=== PATIENT | male | born 1985 | race African-American/Black ===

== ENCOUNTER 2016-06-17 19:41 | Inpatient (IN) | payer BC ==
[~2016-06-17] VITALS: Ht 165.1 cm; Wt 85.7 kg
[2016-06-17] MEDS ORDERED: NKM (19:43)
--- NOTE | 2016-06-17 20:00 | Emergency Room Report ---
History of Present Illness General Chief Complaint: Chest Pain Source: Patient, EMS Present Illness HPI Patient is a 31-year-old male who presented after having increased chest pain for the past 3 days. Patient states he's had intermittent episodes of chest pain the past which did not radiate. The pain was noted in the right lower chest. The pain was worse with deep breath. Patient denied any recent leg pain or swelling. Denied recent travel. He had vomited 5 times the last few days. Allergies: Coded Allergies: SHELLFISH DERIVED (Verified Allergy, Unknown, 06/17/16) Shrimp (Verified Allergy, Unknown, 06/17/16) Patient History Reviewed Nursing Documentation: PMH: Agreed, PSxH: Agreed Nursing Documentation-PMH Past Medical History: No Stated History Review of Systems All Other Systems: negative except mentioned in HPI Physical Exam Vital Signs Date Time Temp Pulse Resp B/P Pulse Ox O2 Delivery O2 Flow Rate FiO2 06/17/16 19:39 98.1 80 36 145/103 99 Room Air Sp02 EP Interpretation: normal General Appearance: alert, GCS 15, non-toxic, mild distress Head: normocephalic ENT: normal ENT inspection, hearing grossly normal, normal voice Neck: normal inspection, full range of motion, supple, no bony tend Respiratory: normal inspection, lungs clear, normal breath sounds, no respiratory distress, no retraction, no wheezing Cardiovascular #1: regular rate, rhythm, no edema Gastrointestinal: normal inspection, normal bowel sounds, non tender, soft, no guarding, no hernia Genitourinary: no CVA tenderness Musculoskeletal: normal inspection, back normal, normal range of motion Neurologic: normal inspection, alert, responsive, speech normal Psychiatric: normal inspection, judgement/insight normal, mood/affect normal Skin: normal inspection, normal color, no rash Medical Decision Making Diagnostic Impression: Primary Impression: Biliary obstruction Additional Impression: Cholelithiasis ER Course Patient presented for abdominal pain. Differential diagnoses included ischemic bowel, appendicitis, perforated viscus, abdominal aortic aneurysm, inferior myocardial infarction, viral gastroenteritis Because of complexity of patient's case laboratory testing and imaging studies were ordered. Laboratory testing was notable for elevated alkaline phosphatase as well as liver function tests. The patient started on IV antibiotics empirically. He was given IV morphine for pain as well as Zofran.CT abdomen pelvis read by radiology showed dilated gallbladder with intrahepatic duct dilation suggestive of biliary obstruction. Abdominal ultrasound was ordered which showed a common bile duct of 9.5 cm. Patient was discussed with Dr. Hector Young. The patient was also discussed with Dr. Montez for GI consult Laboratory Tests Test 06/17/16 19:50 06/17/16 20:10 White Blood Count 10.0 K/UL (4.8-10.8) Red Blood Count 5.13 M/UL (4.70-6.10) Hemoglobin 15.3 G/DL (14.2-18.0) Hematocrit 44.7 % (42.0-52.0) Mean Corpuscular Volume 87 FL (80-99) Mean Corpuscular Hemoglobin 29.7 PG (27.0-31.0) Mean Corpuscular Hemoglobin Concent 34.1 G/DL (32.0-36.0) Red Cell Distribution Width 11.6 % (11.6-14.8) Platelet Count 288 K/UL (150-450) Mean Platelet Volume 9.6 FL (6.5-10.1) Neutrophils (%) (Auto) 48.6 % (45.0-75.0) Lymphocytes (%) (Auto) 40.0 % (20.0-45.0) Monocytes (%) (Auto) 8.3 % (1.0-10.0) Eosinophils (%) (Auto) 1.6 % (0.0-3.0) Basophils (%) (Auto) 1.5 % (0.0-2.0) Sodium Level 135 mEQ/L (135-145) Potassium Level 3.1 mEQ/L (3.4-4.9) L Chloride Level 93 mEQ/L (98-107) L Carbon Dioxide Level 20 mEQ/L (20-30) Anion Gap 22 (5-15) H Blood Urea Nitrogen 8 mg/dL (7-23) Creatinine 0.9 mg/dL (0.7-1.2) Estimate Glomerular Filtration Rate > 60 mL/min (>60) Glucose Level 137 mg/dL (74-106) H Calcium Level 9.2 mg/dL (8.6-10.2) Total Bilirubin 3.6 mg/dL (0.0-1.2) H Direct Bilirubin 2.0 mg/dL (0.1-0.3) H Aspartate Amino Transferase (AST) 382 U/L (5-40) H Alanine Aminotransferase (ALT) 600 U/L (3-41) H Alkaline Phosphatase 530 U/L (40-129) H Total Creatine Kinase 73 U/L (38-174) Creatine Kinase MB < 1.5 ng/mL (< 6.7) Creatine Kinase MB Relative Index Troponin I < 0.30 ng/mL (<=0.30) Total Protein 7.6 g/dL (6.6-8.7) Albumin 4.4 g/dL (3.5-5.2) Globulin 3.2 g/dL Albumin/Globulin Ratio 1.3 (1.0-2.7) Lipase 24 U/L (< 60) Urine Opiates Screen Negative (NEGATIVE) Urine Barbiturates Screen Negative (NEGATIVE) Phencyclidine (PCP) Screen Negative (NEGATIVE) Urine Amphetamines Screen Negative (NEGATIVE) Urine Benzodiazepines Screen Negative (NEGATIVE) Urine Cocaine Screen Negative (NEGATIVE) Urine Marijuana (THC) Screen Negative (NEGATIVE) EKG Diagnostic Results Rate: normal - 76 Rhythm: NSR ST Segments: no acute changes Last Vital Signs Date Time Temp Pulse Resp B/P Pulse Ox O2 Delivery O2 Flow Rate FiO2 06/17/16 19:39 98.1 80 36 145/103 99 Room Air Status: unchanged Disposition: ADMITTED INPATIENT Condition: Vikas FrankoPrashant Jun 17, 2016 20:00
[2016-06-17 20:10] LABS: BASOPHILS % (AUTO) 1.5 % (0.0-2.0); EOSINOPHILS % (AUTO) 1.6 % (0.0-3.0); MEAN CORPUSCULAR HEMOGLOBIN 29.7 PG (27.0-31.0); MEAN CORPUSCULAR HGB CONC 34.1 G/DL (32.0-36.0); MEAN CORPUSCULAR VOLUME 87 FL (80-99); MEAN PLATELET VOLUME 9.6 FL (6.5-10.1); MONOCYTES % (AUTO) 8.3 % (1.0-10.0); NEUTROPHILS % (AUTO) 48.6 % (45.0-75.0); PLATELET COUNT 288 K/UL (150-450); RED BLOOD COUNT 5.13 M/UL (4.70-6.10); RED CELL DISTRIBUTION WIDTH 11.6 % (11.6-14.8)
[2016-06-17] MEDS ORDERED: Morphine Sulfate 4mg/ml Inj IVP ONE ×2 (20:15→21:15)
[2016-06-17 20:21] VITALS: BP 116/68
[2016-06-17 20:25] LABS: TROPONIN I < 0.30 ng/mL (<=0.30)
[2016-06-17 20:28] LABS: ALANINE AMINOTRANSFERASE 600 U/L (3-41); ALBUMIN/GLOBULIN RATIO 1.3 (1.0-2.7); ANION GAP 22 (5-15); ASPARTATE AMINO TRANSFERASE 382 U/L (5-40); CALCIUM 9.2 mg/dL (8.6-10.2); CARBON DIOXIDE 20 mEQ/L (20-30); CHLORIDE 93 mEQ/L (98-107); CREATININE 0.9 mg/dL (0.7-1.2); GLOMERULAR FILTRATION RATE > 60 mL/min (>60); HEMOLYSIS 6; LIPASE 24 U/L (< 60); POTASSIUM 3.1 mEQ/L (3.4-4.9); SODIUM 135 mEQ/L (135-145); TOTAL PROTEIN 7.6 g/dL (6.6-8.7)
[2016-06-17 20:38] LABS: CKMB < 1.5 ng/mL (< 6.7)
[2016-06-17 21:18] VITALS: BP 122/65
[2016-06-17] MEDS ORDERED: Ampicillin/Sulbactam Sod 3 GM in NS 110 ML IVPB ONE (21:30)
[2016-06-17] MEDS ORDERED: Unasyn 3gm Inj ONE (22:26)
[2016-06-17] MEDS ORDERED: Morphine Sulfate 2mg/ml Inj IVP PRN (22:30)
[2016-06-17] MEDS ORDERED: Milk of Magnesia 30ml Ud ORAL PRN (22:30)
[2016-06-17] MEDS ORDERED: Zolpidem 5mg tab ORAL PRN (22:30)
[2016-06-17] MEDS ORDERED: Morphine Sulfate 4mg/ml Inj IVP PRN (22:30)
[2016-06-17 22:40] VITALS: BP 105/41
[2016-06-17] MEDS: D5 1/2NS 1,000 ML IV SCH (23:55)
[2016-06-18 00:46] VITALS: BP 108/43
[2016-06-18 04:00] VITALS: BP 102/47
[2016-06-18] MEDS ORDERED: Zosyn 3.375gm inj ONE (05:41)
[2016-06-18] MEDS: Piperacillin/Tazobactam 3.375 GM in D5W 110 ML IVPB SCH ×3 (06:02→22:07)
[2016-06-18] MEDS ORDERED: Morphine Sulfate 10mg/ml Inj IVP PRN (06:29)
[2016-06-18] MEDS ORDERED: Morphine Sulfate 4mg/ml Inj IVP PRN (06:30)
[2016-06-18 07:28] LABS: BASOPHILS % (AUTO) 1.4 % (0.0-2.0); EOSINOPHILS % (AUTO) 1.9 % (0.0-3.0); LYMPHOCYTES % (AUTO) 36.2 % (20.0-45.0); MEAN CORPUSCULAR HEMOGLOBIN 29.9 PG (27.0-31.0); MEAN CORPUSCULAR HGB CONC 33.8 G/DL (32.0-36.0); MEAN CORPUSCULAR VOLUME 89 FL (80-99); MEAN PLATELET VOLUME 9.3 FL (6.5-10.1); NEUTROPHILS % (AUTO) 51.5 % (45.0-75.0); PLATELET COUNT 268 K/UL (150-450); RED BLOOD COUNT 4.89 M/UL (4.70-6.10); RED CELL DISTRIBUTION WIDTH 11.8 % (11.6-14.8); WHITE BLOOD COUNT 6.3 K/UL (4.8-10.8)
[2016-06-18 07:49] LABS: TROPONIN I < 0.30 ng/mL (<=0.30)
[2016-06-18 07:52] LABS: ALANINE AMINOTRANSFERASE 503 U/L (3-41); ALBUMIN/GLOBULIN RATIO 1.3 (1.0-2.7); ANION GAP 13 (5-15); ASPARTATE AMINO TRANSFERASE 282 U/L (5-40); CALCIUM 8.9 mg/dL (8.6-10.2); CARBON DIOXIDE 26 mEQ/L (20-30); CHLORIDE 99 mEQ/L (98-107); CHOLESTEROL 171 mg/dL (< 200); CHOLESTEROL/HDL RATIO 3.4 (3.3-4.4); CREATININE 0.8 mg/dL (0.7-1.2); GLOMERULAR FILTRATION RATE > 60 mL/min (>60); HEMOLYSIS 7; LDL CHOLESTEROL (CALC.) 108 mg/dL (60-99); MAGNESIUM 2.1 mg/dL (1.7-2.5); POTASSIUM 3.9 mEQ/L (3.4-4.9); SODIUM 138 mEQ/L (135-145); TOTAL PROTEIN 6.9 g/dL (6.6-8.7)
[2016-06-18 08:00] VITALS: BP 146/70
[2016-06-18 08:02] LABS: HEMOGLOBIN A1C 4.9 % (< 6.0)
[2016-06-18 08:09] LABS: BILIRUBIN,DIRECT 1.4 mg/dL (0.1-0.3)
[2016-06-18] MEDS: Pantoprazole Inj IV SCH (08:30)
--- NOTE | 2016-06-18 09:24 | Diagnostic Imaging Report ---
Clinical history: Chest pain Technique: Portable AP chest radiograph was obtained. Comparison: None Findings: Lung volumes are low. No focal consolidation identified. There is no pneumonia or pulmonary edema. There is no pleural effusion or pneumothorax. The cardiac and mediastinal silhouettes are normal in appearance. The bony thorax is unremarkable. Impression: No acute cardiopulmonary process.
[2016-06-18] MEDS: D5 1/2NS 1,000 ML IV SCH ×2 (09:27→19:27)
--- NOTE | 2016-06-18 09:37 | Diagnostic Imaging Report ---
\H\CT Abdomen/Pelvis with Intravenous Contrast Date of service: 06/17/16. Indication: Acute abdominal pain. Comparison: None available. Technique: Utilizing a multislice CT scanner, a CT of the abdomen and pelvis was performed after administration of intravenous contrast. All CT scans at this facility use dose modulation, iterative reconstruction, and/or weight based dosing when appropriate to reduce radiation dose to as low as reasonably achievable. CTDIvol (mGy): 17 DLP (mGy-cm): 956 Findings: The visualized lung bases exhibit mild nonspecific linear and nodular opacities in the dependent lungs abutting the pleura suggesting atelectasis or scarring. The liver is unremarkable. The gallbladder is moderately distended with cholelithiasis. Mild increased stranding of the right upper abdomen mesentery is identified. Consider clinical correlation for acute cholecystitis. There is moderate intrahepatic and extrahepatic biliary ductal dilatation. The pancreatic duct appears prominent. Clinical correlation for bile duct obstruction and further evaluation with MRCP and/or ERCP is recommended. The spleen and adrenal glands are unremarkable. There is a 25 x 12 mm probable cyst in the lower left kidney. No calculus is identified within either kidney, along the expected course of the ureters or within the urinary bladder. There is no evidence of hydronephrosis or asymmetric perirenal inflammatory change. The urinary bladder is grossly unremarkable. The pelvic organs are grossly unremarkable. The visualized bowel are grossly unremarkable. There is no evidence of obstruction. There is no extraluminal gas or fluid. Nonspecific mild right lower quadrant lymphadenopathy is noted. There is no significant calcified atherosclerotic disease of the the abdominal aorta. The osseous structures are unremarkable. \N\\H\Impression: 1. Moderately distended gallbladder with cholelithiasis and increased stranding of the right upper abdomen mesentery. Consider clinical correlation for acute cholecystitis. HIDA scan may be considered, as clinically warranted. 2. Moderate intrahepatic and extrahepatic biliary ductal dilatation with a prominent pancreatic duct. Clinical correlation for bile duct obstruction and further evaluation with MRCP and/or ERCP is recommended. 3. Probable 25 mm left renal cyst. 4. Mild nonspecific right lower quadrant lymphadenopathy. \N\
--- NOTE | 2016-06-18 09:51 | Diagnostic Imaging Report ---
Study: Ultrasound Abdomen Indication: Acute abdominal pain. Comparison: Subsequently performed abdomen/pelvis CT dated 06/17/16. TECHNIQUE: Grayscale and color Doppler images of the abdominal organs were obtained using a curved transducer. FINDINGS: The pancreas is not optimally visualized due to overlying bowel gas. The liver measures 15.8 cm along the mid clavicular line and is normal in contour and echogenicity. The portal vein demonstrates hepatopetal flow. There is mild intrahepatic biliary dilation. The common duct measures 9.5 mm. The gallbladder is moderately distended with small echogenic foci suggesting cholelithiasis. The sonographic Luna's sign is reported negative. The spleen is normal in size, measuring 10.6 cm. The right kidney measures 11.9 x 5.1 x 4.5 cm and the left kidney measures 11.3 x 4.9 x 6.1 cm. Both kidneys demonstrate normal cortical thickness and echogenicity. There is no hydronephrosis. Probable 2.5 cm left renal cyst noted. There is no ascites. The proximal aorta and IVC are not optimally visualized. IMPRESSION: 1. Moderately distended gallbladder with cholelithiasis. Sonographic Luna's sign is reported negative. Clinical correlation for acute cholecystitis is recommended. HIDA scan may be considered. 2. Mild intrahepatic biliary ductal dilatation. Please refer to the abdomen/pelvis CT report from the same day for further details. 3. Probable 2.5 cm left renal cyst.
[2016-06-18] MEDS ORDERED: D5 1/2NS 1000ml IV ONE (10:38)
[2016-06-18] MEDS ORDERED: Tubing IV Secondary IV ONE ×2 (10:38→10:40)
[2016-06-18] MEDS ORDERED: D5NS 1000ml IV ONE (10:40)
[2016-06-18] MEDS ORDERED: D5W 275ml ONE (10:40)
[2016-06-18] MEDS ORDERED: 1/2 NS 1000ml IV ONE (10:40)
--- NOTE | 2016-06-18 12:20 | History & Physical ---
History and Physical History & Physicial HP dictated # [id number] KEVIN PUENTE Jun 18, 2016 12:20
[2016-06-18 12:30] VITALS: BP 109/63
[2016-06-18 16:24] VITALS: BP 116/56
--- NOTE | 2016-06-18 17:49 | History and Physical Report ---
DATE OF ADMISSION: 06/17/2016 CHIEF COMPLAINT: Right-sided lower chest pain as well as vomiting and anorexia. HISTORY OF PRESENT ILLNESS: This is a 31-year-old male who has had some pain on the right lower part of the chest, which started about two years ago. The patient has had it on and off and he did not seek medical attention. However, three days prior to admission, he started having severe pain in that area and he had some vomiting. In the past couple of days, his symptoms were waxing and waning. He did not eat anything on Sunday and he felt better. Then, he had a cheeseburger and he started getting pain and vomiting again, but finally on Sunday he came to the emergency room with worsening of his pain. In the emergency room, the patient had an ultrasound of the abdomen and that showed moderately distended gallbladder with cholelithiasis and mild intrahepatic biliary ductal dilatation. The patient had also CT scan again showing moderately distended gallbladder with cholelithiasis and moderate intrahepatic and extrahepatic biliary ductal dilation. The patient was admitted with diagnosis of acute cholecystitis with possible common bile duct stone since he has had also elevation of bilirubin and AST and ALT. Bilirubin was 3.5, AST was 282, and ALT was 463. Overnight, the patient was kept NPO with IV fluids as well as intravenous antibiotics, and is feeling better now. PAST MEDICAL HISTORY: Basically benign, the patient denies any history of diabetes mellitus or hypertension. He has not been in the hospital before. No history of lung disease or kidney problems. MEDICATIONS: None. ALLERGIES: Shellfish and shrimp. No known drug allergies. REVIEW OF SYSTEMS: As above. PHYSICAL EXAMINATION: GENERAL: The patient is a 31-year-old male, in no acute distress. VITAL SIGNS: Blood pressure ___/70, pulse 93, temperature 97, and respiratory rate 15. HEENT: Burna conjunctivae. Anicteric sclerae. NECK: Supple. LUNGS: Clear to auscultation. HEART: S1 and S2 without murmurs or rubs. ABDOMEN: Soft and nontender. EXTREMITIES: No cyanosis or edema. LABORATORY FINDINGS: CBC shows a WBC of 6.3, which is down from 10,000, hematocrit 43.3, hemoglobin 14.6, and platelets 268,000. Chemistry panel shows serum sodium 138, potassium 3.9, chloride 99, CO2 26, BUN 4, and creatinine 0.8. Albumin is 4. ASSESSMENT: This is a 31-year-old male, who was admitted with diagnosis of acute cholecystitis as a result of cholelithiasis with possibility of common bile duct stone and biliary obstruction. PLAN: The patient will be maintained on IV fluids. I will keep the patient NPO. The patient is already on as-needed morphine for pain management. Gastrointestinal consultation was called. The patient will likely need to have the ERCP and possibly cholecystectomy. These were discussed with the patient in detail, and all questions were answered. Hector Young M.D. DR: SHAYY JOB#: [id number] CC:
[2016-06-18 20:52] VITALS: BP 114/71
--- NOTE | 2016-06-18 22:09 | Consultation ---
DATE OF CONSULTATION: 06/18/2016 GASTROENTEROLOGY CONSULTATION CHIEF COMPLAINT: Nausea, vomiting, and abdominal pain. HISTORY OF PRESENT ILLNESS: The patient is 31-year-old male with a past medical history of gallstones, admitted to the hospital with complaint of one-day of severe abdominal pain. In the ER, he had a CT, ultrasound, and laboratories, all consistent with positivity of acute cholecystitis versus choledocholithiasis. Of note, the patient is feeling much better today and he has no pain today. PAST MEDICAL HISTORY: Gallbladder disease and gallstones. PAST SURGICAL HISTORY: None. MEDICATIONS: Please see medication reconciliation list. ALLERGIES: Shellfish and shrimp. SOCIAL HISTORY: He is . No history of tobacco, alcohol, or drug abuse. FAMILY HISTORY: Noncontributory. REVIEW OF SYSTEMS: A 10-point review of systems was performed and pertinent positives in history of present illness. PHYSICAL EXAMINATION: VITAL SIGNS: Temperature 98.4 degrees, pulse is 69, respirations 19, and blood pressure is 116/56. HEENT: Normocephalic and atraumatic. Sclerae anicteric. NECK: Supple. No evidence of lymphadenopathy. CARDIOVASCULAR: Regular rhythm. Plus S1 and S2. No obvious murmur. LUNGS: Clear breath sounds bilaterally. ABDOMEN: Positive bowel sounds. Soft and nontender. No rebound. No guarding. No peritoneal sign. EXTREMITIES: No cyanosis. No clubbing. No edema. LABORATORY DATA: Bilirubin 3.5 and direct bilirubin is 1.4. AST of 282, ALT of 503, and alkaline phosphatase of 463. ASSESSMENT: This is a 31-year-old male with abnormal liver function tests and possible acute cholecystitis versus choledocholithiasis. PLAN: Given the abdominal pain is almost gone, we will order an MRCP. The patient possibly passed the stone. If the MRCP shows evidence of CBD stone, we will schedule endoscopic retrograde cholangiopancreatography. If the MRCP shows no CBD stone, the liver enzymes are improved, and the patient has no pain, we will recommend surgical evaluation for cholecystectomy. Shade Koo M.D. DR: VAHID JOB#: [id number] CC:
[2016-06-18 23:07] LABS: TROPONIN I < 0.30 ng/mL (<=0.30)
[2016-06-19 04:00] VITALS: BP 108/67
[2016-06-19] MEDS: Piperacillin/Tazobactam 3.375 GM in D5W 110 ML IVPB SCH ×3 (05:26→21:51)
[2016-06-19] MEDS: D5 1/2NS 1,000 ML IV SCH ×2 (05:26→17:46)
[2016-06-19 06:55] LABS: TROPONIN I < 0.30 ng/mL (<=0.30)
[2016-06-19 06:59] LABS: ALANINE AMINOTRANSFERASE 394 U/L (3-41); ALBUMIN/GLOBULIN RATIO 1.3 (1.0-2.7); ANION GAP 13 (5-15); ASPARTATE AMINO TRANSFERASE 150 U/L (5-40); CALCIUM 9.2 mg/dL (8.6-10.2); CARBON DIOXIDE 26 mEQ/L (20-30); CHLORIDE 100 mEQ/L (98-107); CREATININE 0.9 mg/dL (0.7-1.2); GLOMERULAR FILTRATION RATE > 60 mL/min (>60); HEMOLYSIS 0; POTASSIUM 4.2 mEQ/L (3.4-4.9); SODIUM 139 mEQ/L (135-145); TOTAL PROTEIN 6.6 g/dL (6.6-8.7)
[2016-06-19 07:20] LABS: BILIRUBIN,DIRECT 0.8 mg/dL (0.1-0.3)
[2016-06-19 08:00] VITALS: BP 111/69
[2016-06-19] MEDS: Pantoprazole Inj IV SCH ×3 (09:00→09:46)
--- NOTE | 2016-06-19 09:36 | General Progress Note ---
Assessment/Plan Assessment/Plan Assessment - Abnormal LFT - improved - cholelithiasis - suspect patient passed a stone Recommendations - Await MRCP - If (+) CBD stone --> ERCP - If (-) CBD stone --> clears and advance - Needs eventual lap dulce Subjective Allergies: Coded Allergies: SHELLFISH DERIVED (Verified Allergy, Unknown, 06/17/16) Shrimp (Verified Allergy, Unknown, 06/17/16) Subjective feels OK NPO no abd pain LFT better Objective Last 24 Hour Vital Signs Date Time Temp Pulse Resp B/P Pulse Ox O2 Delivery O2 Flow Rate FiO2 06/19/16 08:00 97.5 68 19 111/69 98 Room Air 06/19/16 04:00 97.9 70 20 108/67 99 Room Air 06/18/16 20:52 97.7 63 18 114/71 97 Room Air 06/18/16 16:24 98.4 69 19 116/56 99 Room Air 06/18/16 12:30 98.1 78 16 109/63 98 Room Air Intake and Output 06/18/16 06/19/16 19:00 07:00 Intake Total 300 ml 1330.0 ml Output Total 750 ml Balance 300 ml 580.0 ml Intake Oral 120 ml IV Total 300 ml 1210.0 ml Output Urine Total 750 ml # Voids 2 Laboratory Tests 06/18/16 22:40: Troponin I < 0.30 06/19/16 05:10: Troponin I < 0.30, Sodium Level 139, Potassium Level 4.2, Chloride Level 100, Carbon Dioxide Level 26, Anion Gap 13, Blood Urea Nitrogen 5L, Creatinine 0.9, Estimat Glomerular Filtration Rate > 60, Glucose Level 109H, Calcium Level 9.2, Total Bilirubin 2.7H, Direct Bilirubin 0.8H, Aspartate Amino Transf (AST/SGOT) 150H, Alanine Aminotransferase (ALT/SGPT) 394H, Alkaline Phosphatase 429H, Total Protein 6.6, Albumin 3.8, Globulin 2.8, Albumin/Globulin Ratio 1.3 Height (Feet): 5 Height (Inches): 8.00 Weight (Pounds): 189 Objective WDWN NCAT supple CTA RRR Abd soft ND NT no edema non focal SEBASTIEN MCKEON Jun 19, 2016 09:36
--- NOTE | 2016-06-19 10:54 | Cardiology Report ---
APPROVED REPORT EKG Measurement Heart [id number] Normal sinus rhythm Normal ECG
[2016-06-19 12:00] VITALS: BP 103/64
--- NOTE | 2016-06-19 13:25 | General Progress Note ---
Assessment/Plan Problem List: (1) Biliary obstruction ICD Codes: K83.1 - Obstruction of bile duct SNOMED: 116685869 (2) Cholelithiasis ICD Codes: K80.20 - Calculus of gallbladder without cholecystitis without obstruction SNOMED: 136276234 (3) Cholecystitis ICD Codes: K81.9 - Cholecystitis, unspecified SNOMED: 90752715, 14886516 (4) Chest pain ICD Codes: R07.9 - Chest pain, unspecified SNOMED: 56883955 Assessment/Plan Abxs IVF await MRCP surgical consult Discussed with pt, and father inlaw Subjective Allergies: Coded Allergies: SHELLFISH DERIVED (Verified Allergy, Unknown, 06/17/16) Shrimp (Verified Allergy, Unknown, 06/17/16) Subjective feels better Objective Last 24 Hour Vital Signs Date Time Temp Pulse Resp B/P Pulse Ox O2 Delivery O2 Flow Rate FiO2 06/19/16 08:00 97.5 68 19 111/69 98 Room Air 06/19/16 04:00 97.9 70 20 108/67 99 Room Air 06/18/16 20:52 97.7 63 18 114/71 97 Room Air 06/18/16 16:24 98.4 69 19 116/56 99 Room Air Intake and Output 06/18/16 06/19/16 19:00 07:00 Intake Total 300 ml 1330.0 ml Output Total 750 ml Balance 300 ml 580.0 ml Intake Oral 120 ml IV Total 300 ml 1210.0 ml Output Urine Total 750 ml # Voids 2 Laboratory Tests 06/18/16 22:40: Troponin I < 0.30 06/19/16 05:10: Troponin I < 0.30, Sodium Level 139, Potassium Level 4.2, Chloride Level 100, Carbon Dioxide Level 26, Anion Gap 13, Blood Urea Nitrogen 5L, Creatinine 0.9, Estimat Glomerular Filtration Rate > 60, Glucose Level 109H, Calcium Level 9.2, Total Bilirubin 2.7H, Direct Bilirubin 0.8H, Aspartate Amino Transf (AST/SGOT) 150H, Alanine Aminotransferase (ALT/SGPT) 394H, Alkaline Phosphatase 429H, Total Protein 6.6, Albumin 3.8, Globulin 2.8, Albumin/Globulin Ratio 1.3 Height (Feet): 5 Height (Inches): 8.00 Weight (Pounds): 189 Cardiovascular: normal rate Respiratory/Chest: lungs clear Abdomen: soft KEVIN PUENTE Jun 19, 2016 13:25
--- NOTE | 2016-06-19 13:36 | Diagnostic Imaging Report ---
Indication: Biliary ductal dilatation. Abdominal pain Technique: MRI of the abdomen was performed in a 1.5 Ruth magnet. Pulse sequences obtained include coronal and axial T2 single shot fast spin echo breathhold and respiratory gated coronal T2 3-D M.R.C.P.; this data set was displayed in different projections or MIPs. In addition, multiple coronal oblique thin T2 weighted, fat saturated SE sequences obtained through the CBD. Comparison: CT 06/17/16 Findings: The biliary ducts are prominent particularly within the liver. The CBD is relatively normal in size. There is a probable filling defect in the midportion of the CBD best demonstrated on the MRCP portion of the examination (for example series 8, image 3). Gallbladder is distended. No obvious gallstone seen at this time. There is a suggestion of pericholecystic inflammation. The main pancreatic duct is unremarkable. There is a 2.2 cm left renal cyst. There is no ascites. No adrenal mass identified. Impression: Suspected, small, nonobstructive stones in the midportion of the CBD. No impacted stone demonstrated in the distal part of the CBD or ampulla of Madhuri. Mild biliary ductal dilatation is present. 2.2 x 1.5 CM left renal cyst
[2016-06-19] MEDS ORDERED: D5 1/2NS 1000ml IV ONE (14:58)
[2016-06-19] MEDS ORDERED: NS 275ml ONE (14:58)
[2016-06-19 16:06] VITALS: BP 108/86
--- NOTE | 2016-06-19 18:26 | General Progress Note ---
Progress Note Progress Note Chart reviewed, pt examined, consult dictated. Impression: choleduocholithiasis Plan: concur with ERCP, he will need a cholecystectomy pending results of ERCP. Fernando Blanchard MD Jun 19, 2016 18:26
[2016-06-19 20:00] VITALS: BP 110/73
[2016-06-20] VITALS (10 sets, daily range): BP systolic 105–127; BP diastolic 64–78
[2016-06-20] MEDS: D5 1/2NS 1,000 ML IV SCH ×2 (01:27→10:13)
--- NOTE | 2016-06-20 04:48 | Consultation ---
DATE OF CONSULTATION: 06/19/2016 SURGICAL CONSULTATION CONSULTING PHYSICIAN: Fernando Blanchard M.D. REASON FOR CONSULTATION: Gallstones, choledocholithiasis. HISTORY OF PRESENT ILLNESS: This 31-year-old male presented to the hospital two days ago with severe right lower chest pain. The pain was accompanied by nausea and vomiting. On closer questioning, he has had a similar though less severe episodes of this pain for the past year and a half. The patient had pain approximately five days ago. The pain abated. He did not eat anything 3 days ago. He felt better. He ate a cheeseburger 2 days ago, which precipitated the lower chest pain. He denied any symptoms of fever or chills. He denied any symptoms of diarrhea or dysuria. PAST MEDICAL HISTORY: Previous surgeries, none. ALLERGIES: To shellfish. MEDICATIONS: None. SOCIAL HISTORY: Tobacco, none. Alcohol, the patient is a social drinker. He drinks mostly beer and wine. FAMILY HISTORY: Positive for diabetes in a maternal uncle. The patient's father was treated for prostate carcinoma. REVIEW OF SYSTEMS: Essentially negative. There is no history of angina or asthma. He denies any history of hepatitis or renal stones. PHYSICAL EXAMINATION: GENERAL: Reveals a slender black male, in no acute distress. VITAL SIGNS: Temperature 98.2, blood pressure 108/86, pulse 69, and respirations 18. HEENT: Normocephalic. Pupils are equal and reactive to light. There was no scleral icterus. NECK: Supple without adenopathy. LUNGS: Clear. HEART: Showed a regular rhythm without murmurs or gallops. ABDOMEN: Flat and soft. There is mild discomfort in the epigastric region and right upper quadrant. Luna sign is negative. There were no inguinal hernias. EXTREMITIES: Showed no clubbing, cyanosis, or edema. Peripheral pulses were intact. LABORATORY AND DIAGNOSTIC STUDIES: CBC yesterday showed a white blood count of 6300, hemoglobin 14.6 grams percent, hematocrit 43.3%, and platelet count 268,000. Clinical chemistry today shows sodium of 139, potassium 4.2, chloride 100, bicarbonate 26, BUN 5, creatinine 0.9, glucose 109, and calcium 9.2. Total bilirubin today was 2.7 with a direct of 0.8. SGOT was 394, SGPT 150, and alkaline phosphatase elevated to 429. These are improved from yesterday's readings of total bilirubin of 3.5, direct bilirubin of 1.4. An ultrasound of the abdomen taken yesterday showed a dilated common bile duct of 9.5 mm. The gallbladder was moderately distended with small echogenic foci suggesting cholelithiasis. A CT scan of the abdomen taken on admission showed a moderately distended gallbladder with cholelithiasis. There was mild increased stranding of the right upper abdomen mesentery. The CT mentioned moderate intrahepatic and extrahepatic biliary dilatation suspicious for a bile duct obstruction. An MRCP taken today showed small nonobstructive stones in the mid portion of the common bile duct. There were no impacted stones in the distal bile duct or the ampulla of Vater. IMPRESSION: Choledocholithiasis. PLAN: The patient will undergo an endoscopic retrograde cholangiopancreatography tomorrow with hopeful extraction of the bile duct stones. The patient will need a laparoscopic cholecystectomy the timing of which will be dependent on the endoscopic retrograde cholangiopancreatography findings. Fernando Blanchard M.D. DR: PITA JOB#: [id number] CC:
[2016-06-20] MEDS: Piperacillin/Tazobactam 3.375 GM in D5W 110 ML IVPB SCH ×2 (05:58→14:00)
[2016-06-20 07:33] LABS: ALANINE AMINOTRANSFERASE 318 U/L (3-41); ALBUMIN/GLOBULIN RATIO 1.2 (1.0-2.7); ANION GAP 11 (5-15); ASPARTATE AMINO TRANSFERASE 141 U/L (5-40); BASOPHILS % (AUTO) 2.1 % (0.0-2.0); CALCIUM 8.4 mg/dL (8.6-10.2); CARBON DIOXIDE 27 mEQ/L (20-30); CHLORIDE 104 mEQ/L (98-107); EOSINOPHILS % (AUTO) 4.5 % (0.0-3.0); GLOMERULAR FILTRATION RATE > 60 mL/min (>60); HEMOLYSIS 6; LYMPHOCYTES % (AUTO) 50.4 % (20.0-45.0); MEAN CORPUSCULAR HEMOGLOBIN 29.7 PG (27.0-31.0); MEAN CORPUSCULAR HGB CONC 33.1 G/DL (32.0-36.0); MEAN CORPUSCULAR VOLUME 90 FL (80-99); MEAN PLATELET VOLUME 8.6 FL (6.5-10.1); MONOCYTES % (AUTO) 12.4 % (1.0-10.0); NEUTROPHILS % (AUTO) 30.6 % (45.0-75.0); PLATELET COUNT 285 K/UL (150-450); POTASSIUM 4.1 mEQ/L (3.4-4.9); RED BLOOD COUNT 4.75 M/UL (4.70-6.10); RED CELL DISTRIBUTION WIDTH 12.1 % (11.6-14.8); SODIUM 142 mEQ/L (135-145); TOTAL PROTEIN 6.3 g/dL (6.6-8.7); WHITE BLOOD COUNT 5.5 K/UL (4.8-10.8)
[2016-06-20 07:46] LABS: BILIRUBIN,DIRECT 0.5 mg/dL (0.1-0.3)
[2016-06-20] MEDS ORDERED: LR 1000ml ONE (08:00)
[2016-06-20] MEDS ORDERED: Propofol 10mg/ml 20ml IV ONE (08:00)
[2016-06-20] MEDS ORDERED: Midazolam 2mg/2ml Inj ONE (08:00)
[2016-06-20] MEDS ORDERED: fentaNYL 100 mcg/2 mL IV ONE (08:00)
[2016-06-20] MEDS ORDERED: Iothalamate Meglumine 60% 30ML INJ ONE (08:17)
[2016-06-20] MEDS ORDERED: Indomethacin 50mg Supp ONE (08:18)
--- NOTE | 2016-06-20 08:39 | Pre-Procedure Note/Attestation ---
Pre-Procedure Note/Attestation Complete Prior to Procedure Planned Procedure: not applicable Procedure Narrative: ercp Indications for Procedure Pre-Operative Diagnosis: choledocholithiasis Attestation I attest that I discussed the nature of the procedure; its benefits; risks and complications; and alternatives (and the risks and benefits of such alternatives ), prior to the procedure, with the patient (or the patient's legal abrasives sales representative). I attest that, if there was a reasonable possibility of needing a blood transfusion, the patient (or the patient's legal abrasives sales representative) was given the [facility] standardized written summary, pursuant to the Jignesh Harini Blood Safety Act ([place] Health and Safety Code # 1645, as amended). I attest that I re-evaluated the patient just prior to the surgery and that there has been no change in the patient's H&P, except as documented below: LYNDSEY MITCHELL Jun 20, 2016 08:39
--- NOTE | 2016-06-20 08:57 | Anethesia Preoperative Eval ---
Anesthesia Pre-op PMH/ROS General Date of Evaluation: Jun 20, 2016 Time of Evaluation: 08:33 Anesthesiologist: Mahendra ASA Score: ASA 2 Mallampati Score Class I : Soft palate, uvula, fauces, pillars visible Class II: Soft palate, uvula, fauces visible Class III: Soft palate, base of uvula visible Class IV: Only hard plate visible Mallampati Classification: Class II Surgeon: Hayes Diagnosis: Symptomatic cholelithiasis Surgical Procedure: ERCP Anesthesia History: none Family History: no anesthesia problems Allergies: Coded Allergies: SHELLFISH DERIVED (Verified Allergy, Unknown, 06/17/16) Shrimp (Verified Allergy, Unknown, 06/17/16) Past Medical History Cardiovascular: Denies: CAD, HTN, [place], arrhythmia, other, valve dz Pulmonary: Denies: COPD, LISANDRO, asthma, other Gastrointestinal/Genitourinary: Reports: GERD, other - recurrent abdominal pain , Denies: CRI, ESRD Neurologic/Psychiatric: Denies: CVA, TIA, dementia, depression/anxiety, other Endocrine: Denies: DM, hypothyroidism, other, steroids HEENT: Denies: [place] (L), [place] (R), cataract (L), cataract (R), glaucoma, other Hematology/Immune: Denies: DVT, anemia, bleeding disorder, other Musculoskeletal/Integumentary: Denies: DDD, DJD, OA, RA, edema, other Other: other - overweight PMH Narrative: as above admitted with acute abdominal pain nausea and vomiting chest pain r/o cardiac events PSxH Narrative: none Anesthesia Pre-op Phys. Exam Physician Exam Last Vital Signs Date Time Temp Pulse Resp B/P Pulse Ox O2 Delivery O2 Flow Rate FiO2 06/20/16 04:00 97.9 59 18 116/76 99 Room Air Constitutional: NAD Neurologic: CN 2-12 intact Cardiovascular: RRR, no M/R/G Respiratory: other - slightly tender Airway Exam Mallampati Score: Class II MO: full Neck: flexible ROM: full Teeth: intact Dentures: no lower, no upper Anesthesia Pre-op A/P Labs Hematology Test 06/20/16 07:10 White Blood Count 5.5 K/UL (4.8-10.8) Red Blood Count 4.75 M/UL (4.70-6.10) Hemoglobin 14.1 G/DL (14.2-18.0) L Hematocrit 42.6 % (42.0-52.0) Mean Corpuscular Volume 90 FL (80-99) Mean Corpuscular Hemoglobin 29.7 PG (27.0-31.0) Mean Corpuscular Hemoglobin Concent 33.1 G/DL (32.0-36.0) Red Cell Distribution Width 12.1 % (11.6-14.8) Platelet Count 285 K/UL (150-450) Mean Platelet Volume 8.6 FL (6.5-10.1) Neutrophils (%) (Auto) 30.6 % (45.0-75.0) L Lymphocytes (%) (Auto) 50.4 % (20.0-45.0) H Monocytes (%) (Auto) 12.4 % (1.0-10.0) H Eosinophils (%) (Auto) 4.5 % (0.0-3.0) H Basophils (%) (Auto) 2.1 % (0.0-2.0) H Chemistry Test 06/20/16 07:10 Sodium Level 142 mEQ/L (135-145) Potassium Level 4.1 mEQ/L (3.4-4.9) Chloride Level 104 mEQ/L (98-107) Carbon Dioxide Level 27 mEQ/L (20-30) Anion Gap 11 (5-15) Blood Urea Nitrogen 3 mg/dL (7-23) L Creatinine 1.0 mg/dL (0.7-1.2) Estimat Glomerular Filtration Rate > 60 mL/min (>60) Glucose Level 113 mg/dL (74-106) H Calcium Level 8.4 mg/dL (8.6-10.2) L Total Bilirubin 1.7 mg/dL (0.0-1.2) H Direct Bilirubin 0.5 mg/dL (0.1-0.3) H Aspartate Amino Transf (AST/SGOT) 141 U/L (5-40) H Alanine Aminotransferase (ALT/SGPT) 318 U/L (3-41) H Alkaline Phosphatase 337 U/L (40-129) H Total Protein 6.3 g/dL (6.6-8.7) L Albumin 3.5 g/dL (3.5-5.2) Globulin 2.8 g/dL Albumin/Globulin Ratio 1.2 (1.0-2.7) Studies Pre-op Studies: EKG - NSR Risk Assessment & Plan Assessment: ASA 2 Plan: MAC Status Change Before Surgery: No Pre-Antibiotics Drug: as scheduled DIONTE BOATENG M.D. Jun 20, 2016 08:57
[2016-06-20] MEDS: Pantoprazole Inj IV SCH (09:00)
--- NOTE | 2016-06-20 09:27 | Immediate Post-Op Evaluation ---
Immediate Post-Op Evalulation Immediate Post-Op Evalulation Procedure: ERCP Date of Evaluation: Jun 20, 2016 Time of Evaluation: 09:26 IV Fluids: 500 Blood Products: none Estimated Blood Loss: min Urinary Output: none Blood Pressure Systolic: 112 Blood Pressure Diastolic: 58 Pulse Rate: 76 Respiratory Rate: 20 O2 Sat by Pulse Oximetry: 99 Temperature (Fahrenheit): 98.1 Pain Score (1-10): 2 Nausea: No Vomiting: No Complications none Patient Status: awake, patent, none Hydration Status: adequate DIONTE BOATENG M.D. Jun 20, 2016 09:27
--- NOTE | 2016-06-20 09:28 | 48 Hour Post Anesthesia Eval ---
Post Anesthesia Evaluation Procedure: ERCP Date of Evaluation: Jun 20, 2016 Time of Evaluation: 11:02 Blood Pressure Systolic: 108 0: 56 Pulse Rate: 72 Respiratory Rate: 18 Temperature (Fahrenheit): 97.6 O2 Sat by Pulse Oximetry: 98 Airway: patent Nausea: No Vomiting: No Pain Intensity: 1 Hydration Status: adequate Cardiopulmonary Status: stable Mental Status/LOC: patient returned to baseline Follow-up Care/Observations: n/a Post-Anesthesia Complications: none Follow-up care needed: N/A DIONTE BOATENG M.D. Jun 20, 2016 09:28
--- NOTE | 2016-06-20 09:32 | Endoscopy Procedure Note ---
Endoscopy Procedure Note Indication for Procedure: choledocholithiasis Procedures Performed: ERCP Operative Findings/Diagnosis: same Specimen: yes Pt Tolerated Procedure Well: Yes Estimated Blood Loss: none Anesthesiologist: delicia Anesthesia: MAC Implant(s) used?: No 50 yrs or older w/o bx or poly: Not Applicable 10yrs. F/U not recommended: Not Applicable LYNDSEY MITCHELL Jun 20, 2016 09:32
--- NOTE | 2016-06-20 11:11 | General Progress Note ---
Progress Note Progress Note Afebrile. Pt underwent successful ERCP this AM by Dr Koo with removal of a common duct stone. He was advised to proceed with a laparoscopic cholecystectomy tomorrow. He declines due to issues with work. He will see us back in the office to make arrangements for surgery, I have instructed him to adhere to a low fat diet. He was told to return to the ER if he gets a recurrence of abdominal pain. He can follow up with me or with Dr Goss after his business trip. Fernando Blanchard MD Jun 20, 2016 11:11
--- NOTE | 2016-06-20 13:55 | Diagnostic Imaging Report ---
Indication: Abdominal pain Technique: Intraoperative images during ERCP by Dr. Koo Comparison: MRCP dated 06/18/2016 Findings: Intraoperative images demonstrate opacification of the, bile ducts, common hepatic duct, and left intrahepatic ducts, as well as of the gallbladder. Ducts are normal in caliber except for mild central intrahepatic biliary ductal dilatation Impression: Intraoperative imaging, as described
--- NOTE | 2016-06-20 13:58 | Consultation ---
Consult Note Assessment/Plan Dc dictated # [id number] KEVIN PUENTE Jun 20, 2016 13:58
--- NOTE | 2016-06-20 14:35 | General Progress Note ---
Assessment/Plan Assessment/Plan Assessment - Abnormal LFT - improved - cholelithiasis - CBD stone Recommendations - ERCP today - Needs eventual lap dulce - patient wants to do as outpt - understands risk of delay (recurrent stone dz , pancreatitis, admissions etc) Subjective Allergies: Coded Allergies: SHELLFISH DERIVED (Verified Allergy, Unknown, 06/17/16) Shrimp (Verified Allergy, Unknown, 06/17/16) Subjective seen early am today feels OK NPO no abd pain MRI noted --> CBD stone Objective Last 24 Hour Vital Signs Date Time Temp Pulse Resp B/P Pulse Ox O2 Delivery O2 Flow Rate FiO2 06/20/16 12:02 97.9 52 20 120/78 97 Room Air 06/20/16 09:51 97.2 58 17 106/70 97 Room Air 06/20/16 09:45 55 16 106/69 97 Room Air 06/20/16 09:35 56 14 111/69 98 Room Air 06/20/16 09:30 55 15 108/72 100 Nasal Cannula 3.0 06/20/16 09:28 72 18 98 06/20/16 09:27 76 20 99 06/20/16 09:25 57 18 105/64 100 Nasal Cannula 3.0 06/20/16 09:21 97.4 57 16 111/71 100 Nasal Cannula 3.0 06/20/16 04:00 97.9 59 18 116/76 99 Room Air 06/20/16 04:00 97.9 59 18 99 Room Air 06/20/16 01:22 98.1 64 18 127/65 99 Room Air 06/20/16 00:00 98.1 64 18 127/65 99 Room Air 06/19/16 20:00 98.4 65 19 110/73 100 Room Air 06/19/16 16:06 98.2 69 18 108/86 96 Room Air Intake and Output 06/19/16 06/20/16 19:00 07:00 Intake Total 720 ml 480 ml Balance 720 ml 480 ml Intake Oral 720 ml 480 ml # Voids 5 1 # Bowel Movements 1 Laboratory Tests 06/20/16 07:10: White Blood Count 5.5, Red Blood Count 4.75, Hemoglobin 14.1L, Hematocrit 42.6, Mean Corpuscular Volume 90, Mean Corpuscular Hemoglobin 29.7, Mean Corpuscular Hemoglobin Concent 33.1, Red Cell Distribution Width 12.1, Platelet Count 285, Mean Platelet Volume 8.6, Neutrophils (%) (Auto) 30.6L, Lymphocytes (%) (Auto) 50.4H, Monocytes (%) (Auto) 12.4H, Eosinophils (%) (Auto) 4.5H, Basophils (%) ( Auto) 2.1H, Sodium Level 142, Potassium Level 4.1, Chloride Level 104, Carbon Dioxide Level 27, Anion Gap 11, Blood Urea Nitrogen 3L, Creatinine 1.0, Estimat Glomerular Filtration Rate > 60, Glucose Level 113H, Calcium Level 8.4L, Total Bilirubin 1.7H, Direct Bilirubin 0.5H, Aspartate Amino Transf (AST/SGOT) 141H, Alanine Aminotransferase (ALT/SGPT) 318H, Alkaline Phosphatase 337H, Total Protein 6.3L, Albumin 3.5, Globulin 2.8, Albumin/Globulin Ratio 1.2 Height (Feet): 5 Height (Inches): 5.00 Weight (Pounds): 189 Objective WDWN NCAT supple CTA RRR Abd soft ND NT no edema non focal SEBASTIEN MCKEON Jun 20, 2016 14:35
[2016-06-20] MEDS ORDERED: D5 1/2NS 1000ml IV ONE (14:51)
--- NOTE | 2016-06-20 17:58 | Procedure Note ---
DATE OF PROCEDURE: 06/20/2016 SURGEON: Shade Koo M.D. PROCEDURE: ERCP with sphincterotomy and stone removal. ANESTHESIA: By Dr. Mccray. ANESTHESIOLOGIST: Toñito Mccray M.D. INSTRUMENT: Olympus adult ERCP scope. INDICATION: Choledocholithiasis. INFORMED CONSENT: The procedure, risks, benefits, and possible consequences, including hemorrhage, aspiration, perforation and infection, and alternative treatments, were explained to the patient/legal guardian by Dr. Shade Koo and the patient/legal guardian understood and accepted these risks. DESCRIPTION OF PROCEDURE: After informed consent was obtained and the patient was adequately sedated, the ERCP scope was advanced from mouth into the second portion of duodenum. Using a sphincterotome, first the pancreatic duct was cannulated without any injection. Only wire was inserted into the pancreatic duct. Then with some manipulation, we were able to cannulate the common bile duct. Initial cholangiogram showed common bile duct roughly measured about may be 7 mm. There was a filling defect in the distal common bile duct, most probably a stone. The cystic duct was patent and the contrast went into the gallbladder. Then, over a guidewire, 95% sphincterotomy was successfully performed. Then, a balloon was used to sweep the duct multiple times and a stone measuring roughly about maybe 6 mm, black color, was removed from the distal common bile duct. Then, the balloon was again used to sweep the duct multiple times and to perform balloon occlusion cholangiogram. There was no further filling defect seen in the common bile duct. The flow of contrast was excellent from the common bile duct to the duodenum, so no stent was placed. The patient tolerated the procedure very well without complications. SUMMARY OF FINDINGS: 1. Choledocholithiasis. 2. Status post successful ERCP, sphincterotomy, and stone removal. RECOMMENDATIONS: Diet, he will be started on clear liquid diet and advance as tolerated. The patient most probably will need a cholecystectomy to remove the gallbladder, but at this time, the patient kind of wants to leave and have it done as an outpatient. We will follow with the surgical recommendation and the rest of the team. Shade Koo M.D. DR: SERENA JOB#: [id number] CC:
--- NOTE | 2016-06-21 00:08 | Discharge Summary ---
DATE OF ADMISSION: 06/17/2016 DATE OF DISCHARGE: 06/20/2016 CHIEF COMPLAINT: Right-sided lower chest pain as well as vomiting and anorexia. HISTORY OF PRESENT ILLNESS: This is a 31-year-old male, who was admitted with above symptoms. The details are in H and P. The patient was diagnosed with cholelithiasis and acute cholecystitis. In addition, there was suspicion of a common bile duct stone and there was evidence of biliary obstruction based on elevation of bilirubin and liver enzymes. HOSPITAL COURSE: The patient was maintained on IV fluids and IV antibiotics. Initially, he was NPO. He was seen by Dr. Koo in gastrointestinal consultation and MRCP was ordered and this was again consistent with a common bile duct stone. Subsequently on 06/19/2016, the patient underwent endoscopic retrograde cholangiopancreatography by Dr. Koo and he removed sludge from the common bile duct. The patient was also seen by Dr. Blanchard from a surgical standpoint. However, no plan for immediate surgery was made for cholecystectomy. However, per Dr. Blanchard's note, the patient would have arrangements for surgery later with his office. DISCHARGE DIAGNOSES: 1. Acute cholecystitis. 2. Choledocholithiasis. 3. Cholelithiasis. 4. Biliary obstruction. DISCHARGE MEDICATIONS: None. Hector Young M.D. DR: GISELLA JOB#: [id number] CC: MARIA TERESA
--- NOTE | 2016-06-22 15:17 | Cardiology Report ---
APPROVED REPORT EKG Measurement Heart [id number] Normal sinus rhythm with sinus arrhythmia Left axis deviation T wave abnormality, consider inferior ischemia Abnormal ECG
== END 2016-06-20 14:52 | disposition home or self-care (01) | DRG 446 ==
LOC: EDBD 19:41 → EMR 20:40 → EDBD 21:10 → 3E 21:10 → EDBEDREQ 21:55
PROC: 0FC98ZZ Extirpation of Matter from Common Bile Duct, Via Natural or Artificial Opening Endoscopic (ICD-10-PCS; principal; 2016-06-20 09:48)
DX: K80.63 Calculus of gallbladder and bile duct with acute cholecystitis with obstruction (principal); R63.0 Anorexia
CPT/HCPCS: 36415; 71010; 74177; 74181; 74330; 76000; 76700; 80053; 80061; 80300; 82248; 82550; 82553; 83036; 83690; 83735; 84484; 85025; 93005; 94003; 94150; J2250; J2405